=== PATIENT | female | born 1960 | race Asian ===

== ENCOUNTER 2016-05-30 09:34 | Inpatient (IN) | payer OTHER ==
[~2016-05-30] VITALS: Ht 152.4 cm; Wt 55.4 kg
[~2016-05-30 09:34] MED LIST: AMIODARONE 150 MG INJ ONE; ATROPINE 1 MG/10 ML SYRINGE ONE; CA CHLORIDE 10% 10 ML SYRINGE ONE; EPINEPHrine 0.1 MG/ML SYG ONE; NA BICARBONATE 8.4% 50 ML SYG ONE
[2016-05-30 17:10] VITALS: PULSE 101
[2016-05-30 17:14] VITALS: Ht 152.4 cm; Wt 55.4 kg
[2016-05-30] MEDS ORDERED: ONDANSETRON 4 MG INJ IV STA (17:36)
[2016-05-30] MEDS ORDERED: ONDANSETRON 4 MG INJ ONE (17:39)
[2016-05-30] MEDS ORDERED: NACL 0.9% 3 ML SYG IV SCH (18:00)
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
[2016-05-30 20:00] VITALS: PULSE 98
[2016-05-30] MEDS: ONDANSETRON 4 MG INJ IV PRN (22:05)
[2016-05-30] MEDS: 1/2 NS + KCL 20 MEQ 1,000 ML IV SCH (22:05)
[2016-05-30] MEDS: morphine 2 MG INJ IV PRN (22:16)
[2016-05-31] VITALS (9 sets, daily range): BP systolic 145–160; BP diastolic 85–100; PULSE 85–101; RESP 18–19
[2016-05-31] MEDS: 1/2 NS + KCL 20 MEQ 1,000 ML IV SCH ×2 (03:49→09:27)
[2016-05-31] MEDS: morphine 2 MG INJ IV PRN (05:10)
[2016-05-31] MEDS ORDERED: PANTOPRAZOLE 40 MG INJ IV SCH (06:00)
[2016-05-31 06:14] LABS: ADD SCAN DIFF NO; HAAIG REFLEX REFLEX FILED
[2016-05-31 06:30] LABS: INR 1.42; PROTIME 17.4 Sec (12.2-14.2); PT RATIO 1.4
[2016-05-31 06:34] LABS: ALBUMIN 3.5 g/dl (3.3-4.9)
[2016-05-31 06:37] LABS: ALBUMIN/GLOBULIN RATIO 1.2; BILIRUBIN,INDIRECT 0.4 mg/dl (0-1.1); BILIRUBIN,TOTAL 0.4 mg/dl (0.2-1.3); CREATININE 4.28 mg/dl (0.44-1.00); TOTAL PROTEIN 6.4 g/dl (6.1-8.1)
[2016-05-31 06:38] LABS: CALCIUM 7.8 mg/dl (8.4-10.2); CHOL/HDL RATIO 2.5 RATIO; MAGNESIUM 1.9 mg/dl (1.7-2.5); PHOSPHORUS 6.7 mg/dl (2.5-4.9)
[2016-05-31 06:44] LABS: ABNORMAL IP MESSAGE 1; BASOPHILS % 0.1 % (0.0-2.0); HEMATOCRIT 35.7 % (37.0-47.0); HEMOGLOBIN 11.7 g/dl (12.0-16.0); LYMPHOCYTES # 1.3 10^3/ul (0.8-2.9); LYMPHOCYTES % 9.6 % (15.0-51.0); MEAN CORPUSCULAR HEMOGLOBIN 30.1 pg (29.0-33.0); MEAN CORPUSCULAR HGB CONC 32.8 g/dl (32.0-37.0); MEAN CORPUSCULAR VOLUME 91.8 fl (82.0-101.0); MEAN PLATELET VOLUME 11.8 fl (7.4-10.4); MONOCYTE # 0.6 10^3/ul (0.3-0.9); NEUTROPHILS % 85.7 % (39.0-77.0); NUCLEATED RED BLOOD CELLS% 0.2 /100WBC (0.0-0.0); PLATELET COUNT 54 10^3/UL (140-415); RED BLOOD COUNT 3.89 10^6/ul (4.20-5.40); RED CELL DISTRIBUTION WIDTH 13.4 % (11.5-14.5); WHITE BLOOD COUNT 13.9 10^3/ul (4.8-10.8)
[2016-05-31 06:49] LABS: POTASSIUM 7.1 mmol/L (3.5-5.1)
[2016-05-31 07:21] LABS: HEPATITIS B CORE ANTIBODY NEGATIVE (NEGATIVE)
[2016-05-31 08:02] LABS: CANCER ANTIGEN 125 < 5.5 U/ml (0.0-35.0); CANCER ANTIGEN 19-9 6.3 U/ml (0.0-37.0)
[2016-05-31 08:09] LABS: CREATININE 4.21 mg/dl (0.44-1.00)
[2016-05-31 08:10] LABS: CALCIUM 7.8 mg/dl (8.4-10.2)
[2016-05-31 08:16] LABS: POTASSIUM 7.3 mmol/L (3.5-5.1)
[2016-05-31] MEDS ORDERED: INFLUENZA VIRUS VACCINE 0.5 ML (DISPENSING) IM* ONE (09:00)
[2016-05-31 09:10] LABS: T3 UPTAKE 38.3 % (23.5-40.5)
[2016-05-31] MEDS: ONDANSETRON 4 MG INJ IV PRN (09:45)
[2016-05-31] MEDS ORDERED: CA CHLORIDE 10% 10 ML SYRINGE IV ONE (10:00)
[2016-05-31] MEDS ORDERED: DEXTROSE 50% 50 ML SYRINGE IV ONE (10:00)
[2016-05-31] MEDS ORDERED: INSULIN REGULAR, HUMAN 100 UNIT/1 ML 3ML VIAL IV ONE (10:00)
[2016-05-31] MEDS ORDERED: SODIUM BICARBONATE (IV ADD) 100 MEQ in SOD CHLORIDE 0.45% 1,000 ML IV SCH (11:00)
[2016-05-31] MEDS ORDERED: EPINEPHrine 0.1 MG/ML SYG ONE ×2 (11:47→12:03)
[2016-05-31] MEDS ORDERED: NA BICARBONATE 8.4% 50 ML SYG ONE ×3 (11:47→12:03)
--- NOTE | 2016-05-31 11:47 | CONS ---
DATE OF ADMISSION: 05/30/2016 DATE OF CONSULTATION: 05/31/2016 TYPE OF CONSULTATION: Surgery. REASON FOR CONSULTATION: Acalculous cholecystitis. HISTORY OF PRESENT ILLNESS: The patient is a 56-year-old female who was seen at [facility] yesterday complaining of substernal chest pain. Cardiac workup was negative, but a CT scan showed pancreatitis with diffuse gallbladder wall thickening without gallstones. She was also noted to hav e a pericardial effusion. Her lipase, however, was normal. The patient states that the episode cam e on rather suddenly and she has not had any symptoms like this before. She has no familial history of gallbladder disease. She is admitted here with a diagnosis of pancreatitis and acalculous lucrecia cystitis and surgical consultation was requested in that regard. Of note, is the fact that the elier ent's AST is 2719 and the ALT is 2411 with a normal alkaline phosphatase and bilirubin. The patient 's lipase is unremarkable at 157. Also of note is the fact that the patient has renal failure with a BUN of 45 and a creatinine of 4.2 with a potassium of 7.1, repeated at 7.3. PAST MEDICAL HISTORY: section. REVIEW OF SYSTEMS: HEAD, EARS, EYES, NOSE AND THROAT: Unremarkable. PULMONARY: No history of shortness of breath or pneumonia. CARDIAC: No history of chest pain other than this present illness. ABDOMEN: As in the HPI. EXTREMITIES: Unremarkable. MEDICATIONS: None. ALLERGIES: None. PHYSICAL EXAMINATION: GENERAL: The patient is alert, oriented 56-year-old female who is in slight abdominal discomfort. HEAD, EARS, EYES, NOSE, THROAT: Within normal limits. LUNGS: Clear. HEART: Regular rhythm. ABDOMEN: Very tender in the right upper quadrant with guarding and plus/minus rebound. There is a positive Quiroga sign. EXTREMITIES: Unremarkable. LABORATORY DATA: The patient's hematocrit is 35 with a white count of 13,900 and a left shift with 85 polys. Chemistries as noted above. IMPRESSION: 1. The patient has multiple findings. These include CT imaging which shows pancreatitis and sugges kelsey acalculous cholecystitis. 2. The patient has markedly elevated transaminases, suggesting that this may represent an acute hep atitis. Also, there is a new element of renal failure with BUN of 45 and a creatinine of 4.2 with a potassium of 7.1. PLAN: Gastrointestinal consultation and renal consultations have been sought. I have ordered a HID A scan. The patient is tentatively scheduled for laparoscopic cholecystectomy tomorrow, but this ma y be a change based on the patient's further workup and clinical course. I will follow with you. Dictated By: MIK WEIR/RUBINA Conf#: [id number] DID#: [id number]
--- NOTE | 2016-05-31 12:34 | QN ---
Documentation Comment I was called to the fifth floor for a CODE BLUE. When I entered the room I saw a patient who was unresponsive, and was undergoing chest compressions. This patient's primary physician is at bedside. There was a need for an emergent airway so I intubated this patient. Please see intubation note. I did stay at the bedside for approximately 2 rounds of CPR. Care was handed over to the patient's primary care physician, Dr. sosa who was at bedside. Endotracheal Intubation by me: Pre assessment performed. See preceding note for details. Pre-oxygenation performed with 100% oxygen RSI: Performed w/o complication or hypoxic events. Medications as ordered. Blade: [Mac 4] ET Tube: 7.5 cm Depth: 23 cm at the lip Intubation confirmed by colorimetric CO2, equal breath sounds, quiet over the stomach. Chest X-ray 1V Interpreted by me: Pending TARI DOHERTY DO May 31, 2016 12:34
--- NOTE | 2016-05-31 20:53 | DS ---
DATE OF ADMISSION: 05/30/2016 DATE OF DISCHARGE: 05/31/2016 DIAGNOSIS: Cardiac arrest, possibly secondary to hyperkalemia secondary to rapid developing a cute kidney injury as well as hepatitis. HOSPITAL COURSE: The patient is a 56-year-old female with a history of hypertension. The patient h as no other significant medical history. The patient presented with abdominal pain as well as subst ernal chest pain. She had a CT abdomen at outside hospital that showed gallbladder wall thickening as well as fluid around the pancreas suggesting pancreatitis. Ultrasound of the abdomen showed no s igns of cholelithiasis. Of note, lipase was within normal limits. Labs on arrival were within norm al limits with normal renal function. is also reportedly within normal limits. The morning a fter her admission, patient went into rapid renal failure with severe hyperkalemia and rapid increas e in her creatinine and BUN and phosphorus. The patient also developed a transaminitis. The etiolo gy of the findings was unclear. She did have a hep panel that was negative. HIV was negative. She did have tumor markers including AFP, CA 19-9, CA-125 and that were all negative. Patient's lipase was also negative. On the day of her passing, patient had a cardiac arrest. ACLS was initia kelsey for over 40 minutes. The patient was shocked multiple times, received multiple rounds of epinep hrine, calcium and bicarbonate. She was intubated during the code. Eventually, patient was pronoun dulce. Dictated By: MELISSA BENITEZ MD BS/NTS Conf#: [id number] DID#: [id number]
== END 2016-05-31 12:14 | disposition expired | DRG 682 ==
LOC: MS4 16:29
PROVIDERS: ADMIT Hospitalist; ATTEND Hospitalist
PROC: 0BH17EZ Insertion of Endotracheal Airway into Trachea, Via Natural or Artificial Opening (ICD-10-PCS; principal; 2016-05-31)
PROC: 5A12012 Performance of Cardiac Output, Single, Manual (ICD-10-PCS; 2016-05-31)
DX: N17.9 Acute kidney failure, unspecified (principal); K85.90 Acute pancreatitis without necrosis or infection, unspecified; I46.9 Cardiac arrest, cause unspecified; E87.5 Hyperkalemia; K81.9 Cholecystitis, unspecified; B17.9 Acute viral hepatitis, unspecified; R74.0 Nonspecific elevation of levels of transaminase and lactic acid dehydrogenase [LDH]
CPT/HCPCS: 31500; 80048; 80053; 80061; 82105; 82378; 82962; 83036; 83690; 83735; 84100; 84436; 84479; 85025; 85610; 86301; 86304; 86703; 86704; 86709; 86803; 87340; 90686; 92950; C9113; J0171; J0282; J0461; J1815; J2270; J2405; J3480